=== PATIENT | male | born 1940 | race Caucasian/White ===

== ENCOUNTER 2022-06-30 07:53 | Emergency (ER) | payer OTHER, MEDICARE ==
[~2022-06-30] VITALS: Ht 177.8 cm; Wt 59.6 kg
[~2022-06-30 07:53] MED LIST: AMLO5TAB16 PO; ASPI-1071 PO; ATOR20TA66 PO; BACL-11 PO; DICL20GE TOP; FLO0.4C PO; FLUO-211 PO; GABA300C PO; IBUP-24 PO; INSU100V9 SQ; ISOS30TA84 PO; LOP25T PO; PROP15DR56 OP
[2022-06-30 08:33] LABS: CLARITY,URINE SLIGHTLY CLOUDY (Clear); COLOR,URINE YELLOW (Yellow); GLUCOSE, URINE 100 mg/dl (Neg); KETONES,URINE 15 mg/dl (Neg); LEUKOCYTE ESTERASE ,URINE NEGATIVE (Neg); NITRITES, URINE NEGATIVE (Neg); OCCULT BLOOD,URINE MODERATE (Neg); PH,URINE 5.5 (4.8-8.0); PROTEIN,URINE 100 mg/dl (Neg); UROBILINOGEN,URINE 0.2 E.U/dL (0.2-1.0)
[2022-06-30 08:46] LABS: BASOPHILS # (AUTO) 0.1 X10'3 (0-0.2); BASOPHILS % (AUTO) 0.8 % (0-1); EOSINOPHILS % (AUTO) 0.5 % (0-6); HEMATOCRIT 41.3 % (42.0-52.0); LYMPHOCYTES # (AUTO) 1.3 X10'3 (1.1-4.8); LYMPHOCYTES % (AUTO) 20.2 % (21-51); MEAN CORPUSCULAR HEMOGLOBIN 31.4 PG (27.0-31.0); MEAN CORPUSCULAR VOLUME 92.4 FL (78-98); MEAN PLATELET VOLUME 7.4 FL (7.4-10.4); MONOCYTES # (AUTO) 0.4 X10'3 (0-0.9); MONOCYTES % (AUTO) 6.6 % (2-12); NEUTROPHILS # (AUTO) 4.8 X10'3 (1.8-7.7); NEUTROPHILS % (AUTO) 71.9 % (42-75); PLATELET COUNT 212 X10'3 (140-440); RED BLOOD COUNT 4.47 X10'6 (4.70-6.10); RED CELL DISTRIBUTION WIDTH 14.5 % (11.5-14.5); WHITE BLOOD COUNT 6.6 X10'3 (4.5-11.0)
[2022-06-30 09:01] LABS: ALANINE AMINOTRANSFERASE 31 U/L (12-78); ALBUMIN 4.1 G/DL (3.4-5.0); ALKALINE PHOSPHATASE 150 IU/L (46-116); ANION GAP 7 (8-16); ASPARTATE AMINO TRANSFERASE 25 U/L (10-37); BILIRUBIN,TOTAL 0.6 MG/DL (0.1-1.0); BLOOD UREA NITROGEN 28 MG/DL (7-18); BUN/CREATININE RATIO 27.7 (5.4-32.0); CALCIUM 9.8 MG/DL (8.5-10.1); CHLORIDE 99 MMOL/L (99-107); CREATININE 1.01 MG/DL (0.60-1.10); GLUCOSE 163 MG/DL (70-104); LIPASE 105 U/L (73-393); POTASSIUM 4.2 MMOL/L (3.5-5.1); SODIUM 136 MMOL/L (135-145); TOTAL CARBON DIOXIDE 29.9 MMOL/L (24-32); TOTAL PROTEIN 8.4 G/DL (6.4-8.2); eGFR 71 ML/MIN
[2022-06-30 09:10] LABS: UA COLLECTION TYPE VOIDED
[2022-06-30 09:11] LABS: HYALINE CASTS 0-3 /LPF (NEGATIVE); MUCUS STRANDS FEW /LPF (Neg); SQUAMOUS EPITHELIAL CELL,UR MODERATE /LPF (FEW)
[2022-06-30 09:12] LABS: BACTERIA,URINE FEW /HPF (Neg); RBC,URINE 0-2 /HPF (0-2); WBC,URINE 0-4 /HPF (0-4)
[2022-06-30] MEDS ORDERED: ondansetron/PF 4mg/2ml inj IV ONE (10:36)
[2022-06-30] MEDS ORDERED: normal saline 1000ml 1,000 ML IV ONE (10:37)
[2022-06-30] MEDS ORDERED: amLODIPine 5mg tablet PO ONE (11:00)
[2022-06-30] MEDS ORDERED: metoprolol tartrate 50mg tablet PO ONE (11:00)
[2022-06-30] MEDS ORDERED: ONDA4TAB12 PO (12:15)
--- NOTE | 2022-06-30 12:16 | NUR ---
PT CONSUMED 6 OUNCES OF WATER AND APPEARED TO TOLERATE WELL.
[2022-06-30 12:35] VITALS: BP 185/90
--- NOTE | 2022-06-30 12:35 | NUR ---
PATIENT IS BEING DISCHARGED BACK TO [facility]. ZENON CALLED AT [phone]. [facility] WILL BE COMING TO GET PATIENT. ZENON INFORMED OF RX FOR ZOFRAN THAT WAS GIVEN. ZENON WOULD LIKE RX CALLED TO [facility] ON [address] AND SHE WILL BE ABLE TO ROOFER GYPSUM THE RX LATER TODAY.
== END 2022-06-30 12:44 | disposition home or self-care (01) ==
LOC: ER 07:54
DX: R11.0 Nausea (principal); K59.00 Constipation, unspecified; I25.10 Atherosclerotic heart disease of native coronary artery without angina pectoris; I10 Essential (primary) hypertension; I25.2 Old myocardial infarction; J44.9 Chronic obstructive pulmonary disease, unspecified; E11.9 Type 2 diabetes mellitus without complications; Z20.822 Contact with and (suspected) exposure to COVID-19
CPT/HCPCS: 36415; 71045; 80053; 81001; 83690; 84484; 85025; 87502; 87503; 87811; 93005; 96361; 96374; 99285; J2405; J7030